=== PATIENT | female | born 1975 | race Two or more races ===

== ENCOUNTER 2018-12-06 16:26 | Inpatient (IN) | payer SELFPAY ==
[~2018-12-06] VITALS: Ht 167.6 cm; Wt 86.8 kg
[2018-12-06] MEDS ORDERED: SODIUM CHLORIDE 0.9% 1,000 ML IV ONE (16:56)
[2018-12-06] MEDS ORDERED: hydrALAZINE HCL 20 MG/ML VL IV ONE ×2 (17:30→21:00)
[2018-12-06 17:31] LABS: Basophils # (auto) 0 uL; Basophils % (auto) 0.4 % (0.0-2.0); Eosinophils # (auto) 0 uL; Eosinophils % (auto) 0.2 % (0.0-7.0); Hematocrit 33.9 % (36.0-46.0); Hemoglobin 11.4 g/dL (12.2-16.2); Lymphocytes # (auto) 0.4 uL; Lymphocytes % (auto) 13.3 % (10.0-50.0); Mean Corpuscular Hemoglobin 31.4 pg (28.0-32.0); Mean Corpuscular Hgb Conc. 33.6 g/dL (32.0-36.0); Mean Corpuscular Volume 93.5 fL (80.0-100.0); Monocytes # (auto) 0.5 uL; Monocytes % (auto) 14.2 % (0.0-12.0); Neutrophils # (auto) 2.3 uL; Neutrophils % (auto) 71.9 % (37.0-80.0); Nucleated Red Blood Cells % 0.2 %; Platelet Count (auto) 129 10^3/uL (140-450); Red Blood Cells 3.62 10^6/uL (4.0-5.20); Red Cell Distribution Width 14.9 % (11.8-14.3); White Blood Cell 3.2 10^3/uL (4.4-10.8)
[2018-12-06 17:48] LABS: Albumin 3.1 g/dL (3.4-5.0); Calcium 6.8 mg/dL (8.5-10.1); Magnesium 2.3 mg/dL (1.6-2.6); Potassium 4.3 mmol/L (3.5-5.1)
[2018-12-06 17:49] LABS: Amphetamine Screen, Urine NEGATIVE (NEGATIVE); BUN/Creatinine Ratio 5.7; Barbiturate Scree,Urine NEGATIVE (NEGATIVE); Benzodiazephine Screen, Urine NEGATIVE (NEGATIVE); Cannabinoid Screen, Urine NEGATIVE (NEGATIVE); Cocaine Screen, Urine NEGATIVE (NEGATIVE); Opiate Scree,Urine NEGATIVE (NEGATIVE); Phencyclidine Screen, Urine NEGATIVE (NEGATIVE)
[2018-12-06 17:52] LABS: INR 1.03 (0.9-1.15); Partial Thromboplastin Time 43.3 sec (23.64-32.05)
[2018-12-06 17:55] LABS: Bilirubin, Total 0.5 mg/dL (0.2-1.0); Total Protein 7.6 g/dL (6.4-8.2)
[2018-12-06 18:31] LABS: Urine Specific Gravity 1.005 (1.001-1.035)
[2018-12-06 18:34] LABS: Urine Blood 250 /uL (Negative)
[2018-12-06 18:44] LABS: Urine WBC TNTC /hpf (0 - 5); Urine WBC Clumps PRESENT /hpf (None Seen)
[2018-12-06 18:45] LABS: Urine Bacteria 4+ /hpf (None Seen)
[2018-12-06] MEDS ORDERED: DEXTROSE (50%) 50ML SYRG IV PRN (21:30)
[2018-12-06] MEDS ORDERED: NITROGLYCERIN 0.4 MG SL TAB SL PRN (21:30)
[2018-12-06] MEDS ORDERED: MORPHINE SULF INJ 2 MG/ML SYRINGE 1ML IV PRN (21:30)
[2018-12-06] MEDS ORDERED: TEMAZEPAM 15 MG CAP PO PRN (21:30)
[2018-12-06] MEDS ORDERED: ONDANSETRON HCL 4 MG/2 ML VIAL IV PRN (21:30)
[2018-12-06] MEDS: CLINDAMYCIN 600MG IV 50 ML IV SCH (22:23)
[2018-12-06 22:58] LABS: Hemoglobin 12.5 g/dL (12.2-16.2)
[2018-12-06] MEDS ORDERED: cefTRIAXone 1GM/50ML D5W 50 ML IV ONE (23:30)
--- NOTE | 2018-12-07 00:40 | NUR ---
Telemetry admit from ER Patient admitted to Telemetry unit and oriented to primary RN, unit, room, bed, and unit policies regarding patient care and visiting hours. Patient now on continuous telemetry monitoring, tele box # 2 and telemetry reading on arrival to unit is sinus tachycardia at rate of 102. Patient weighed by bedscale and encouraged to call if they need something. All questions and concerns addressed, patient verbalized understanding.
[2018-12-07] MEDS: cefTRIAXone 1GM/50ML D5W 50 ML IV SCH ×2 (00:42→23:59)
[2018-12-07] MEDS: ACCU-CHEK COMFORT CURVE STRIP VI SCH ×5 (00:53→23:59)
[2018-12-07] MEDS: InsuLIN REG 1unit/0.01ml Soln (100units/ml) SC SCH ×5 (00:53→23:59)
[2018-12-07 01:00] VITALS: BP 158/76
[2018-12-07] MEDS: ACETAMINOPHEN 325 MG TAB PO PRN ×3 (01:51→16:01)
[2018-12-07] MEDS ORDERED: LOSA-39 (02:05)
[2018-12-07] MEDS ORDERED: TRAM50TA2 (02:05)
[2018-12-07] MEDS ORDERED: FURO40TA4 (02:05)
[2018-12-07] MEDS ORDERED: ALPR-140 (02:05)
[2018-12-07] MEDS ORDERED: ESCI10TA53 (02:05)
[2018-12-07] MEDS ORDERED: B-CO-5 (02:05)
--- NOTE | 2018-12-07 02:07 | NUR ---
Patient unable to recall medications she takes at home. Active medications she has from [facility] have been added to medication reconciliation but patient cannot currently confirm these medications. Family will bring list of medications in AM, per patient.
[2018-12-07 05:45] VITALS: BP 130/70
--- NOTE | 2018-12-07 06:12 | NUR ---
No urine output noted from Prescott catheter. Bladder distended on assessment. 650 mls of urine noted in bladder upon ultrasound assessment.
[2018-12-07] MEDS: CLINDAMYCIN 600MG IV 50 ML IV SCH ×3 (06:15→21:35)
--- NOTE | 2018-12-07 06:48 | NUR ---
Attempted to flush Prescott with normal saline with no successful flow of urine. Large amounts of purulent, foul smelling drainage noted below vagina. Reattempted to flush with 40 mls of NS and was successful this time. 400 mls of cloudy, straw yellow urine drained out of Prescott. Urine sample taken for culture. Prescott is still draining at this time. Will notify hospitalist of development.
--- NOTE | 2018-12-07 07:07 | NUR ---
Paged hospitalist to notify of purulent, foul smelling urine. Will endorse to day shift RN.
--- NOTE | 2018-12-07 07:34 | NUR ---
Opening Shift Note Assumed care of patient, awake and alert. cnc machinist 2nd shift RN showed consistencies of pt urine thick puss filled, urine culture sent to lab No S/S of distress/SOB or pain. Instructed on POC and to call for assist PRN, will continue to monitor for changes Q1hr and PRN.
[2018-12-07 08:44] VITALS: BP 137/78
[2018-12-07] MEDS: PANTOPRAZOLE 40 MG TAB PO SCH (08:48)
[2018-12-07] MEDS: ASPirin 81 mg TAB PO SCH (08:48)
[2018-12-07 09:26] LABS: Hematocrit 33.5 % (36.0-46.0); Mean Corpuscular Hemoglobin 30.7 pg (28.0-32.0); Mean Corpuscular Hgb Conc. 32.8 g/dL (32.0-36.0); Mean Corpuscular Volume 93.5 fL (80.0-100.0); Platelet Count (auto) 144 10^3/uL (140-450); Red Blood Cells 3.58 10^6/uL (4.0-5.20); Red Cell Distribution Width 14.9 % (11.8-14.3)
[2018-12-07 09:46] LABS: BUN/Creatinine Ratio 5.8; Calcium 6.5 mg/dL (8.5-10.1); Potassium 5.1 mmol/L (3.5-5.1)
[2018-12-07 09:52] LABS: Basophils % (manual) 0 (0.0-2.0); Blast Cells 0; Eosinophils % (manual) 0 (0-7); Metamyelocytes % 0; Myelocytes % 0; Promyelocytes % 0; Reactive Lymphocytes 0
[2018-12-07 11:08] LABS: Band Neutrophils % (manual) 2; Lymphocytes % (manual) 19 (10.0-50.0)
[2018-12-07 11:10] LABS: Monocytes % (manual) 17 (0-12)
--- NOTE | 2018-12-07 11:11 | NUR ---
[facility] dialysis called informed me pt will be getting dialysis today around 1200
[2018-12-07] MEDS ORDERED: LABETALOL HCL 200 MG TAB PO ONE (11:15)
--- NOTE | 2018-12-07 11:32 | NUR ---
WOUND CARE NOTE: Wound care in to see patient per wound care request regarding Rt BKA stump wound and R 3rd finger wound that are noted present on admission. Bedside nurse took photograph of patient's wounds upon admission for reference. Patient is 43 y/o female with admitting diagnosis Metabolic Encephalopathy. Patient with history of DM and ESRD. Patient is resting in bed in Rm. 233A. Patient is awake, alert and oriented. Patient denies any pain at this time. Patient is self turn and reposition. Her Tom score is 17. Patient states that she moves around at home using wheelchair and walker. Noted patient's hands has multiple dry blisters and dry scabbed wound to her Rt 3rd finger. Patient states that dry blisters to her hands and scabbed wound to her Rt 3rd finger is from contact burn "from cooking". Patient reported that it just hard to bend the R 3rd finger due to dry hard scab. Advised patient to apply hydrogel to scab wound on Rt 3rd finger to help moistened scab and come off by itself. Patient's R BKA stump has 2x4x0.7cm open wound. Wound is red with bright red sukhjinder wound, minimal seropurulent drainage noted, no odor noted. Patient reported that R BKA done in [place] "july". Cleanse R BKA stump wound with wound cleanser, pat dry with gauze, applied Thera honey gel to open wound bed area and covered with Opti foam gentle dressing. Patient also has history of L foot transmetatarsal amputation which she reported done "last year at [place]". L forefoot has well healed stump. No other wound noted, no pressure injury noted. Patient tolerated well. RECOMMENDATION: Daily/PRN dressing change to R BKA stump wound, BID/PRN cleaning and application of Hydrogel to R 3rd finger wound per MD order, dietary consult , podiatry/surgical consult, redistribute pressure points with pillows, continue monitoring by wound care while patient is hospitalized. Addendum: 12/07/18 at 1517 by Tonie Kong RN Amended: Links added.
[2018-12-07 13:00] VITALS: BP 142/79
--- NOTE | 2018-12-07 13:45 | NUR ---
HD started on pt [facility]
[2018-12-07] MEDS ORDERED: SODIUM CHL 0.9% 1000 ML BAG XX ONE (14:00)
[2018-12-07 16:00] VITALS: BP 172/91
[2018-12-07] MEDS: cloNIDine HCL 0.1 MG TAB PO PRN (16:01)
--- NOTE | 2018-12-07 16:08 | NUR ---
prn clonidine given for high blood pressure tylenol given for headache and zofran given for nausea, HD nurse came to station informed of x1 emesis right now
--- NOTE | 2018-12-07 17:05 | NUR ---
construction secretary hospitalist paged in regards to getting one time dose for high blood pressure and headache due to pt throwing it up immediately after administration awaiting call back
--- NOTE | 2018-12-07 17:08 | NUR ---
HD completed 3 liters taken out BP 186/95
[2018-12-07] MEDS ORDERED: LABETALOL HCL 5 MG/ML ML 20ML VIAL IV ONE (17:15)
[2018-12-07] MEDS ORDERED: KETOROLAC TROMETH 30 MG/ML 1ML VIAL IV ONE (17:15)
--- NOTE | 2018-12-07 17:38 | NUR ---
md kendrick called back new orders noted and carried out, meds given
--- NOTE | 2018-12-07 17:45 | NUR ---
transport to [facility] pt for mri of the knee, pt x2 episodes of emesis doesn't feel good will have mri tomorrow
--- NOTE | 2018-12-07 19:00 | NUR ---
Opening Shift Note Assumed care of patient, awake and alert. No S/S of distress/SOB or pain. Instructed on POC and to call for assist PRN, will continue to monitor for changes Q1hr and PRN.
[2018-12-07] MEDS ORDERED: EPOETIN ALFA 10,000 UNIT/1 ML VIAL SC ONE (21:00)
[2018-12-07] MEDS: LABETALOL HCL 200 MG TAB PO SCH (21:35)
[2018-12-07 22:00] VITALS: BP 173/75
[2018-12-07] MEDS ORDERED: HYDROcodone-ACET 7.5/325MG TAB PO ONE (22:00)
--- NOTE | 2018-12-07 22:00 | NUR ---
Hospitalist paged: Hospitalist paged d/t patient complaining of pain and stating Tylenol was not sufficient enough to manage her pain. Hospitalist returned page immediately and new orders were received.
--- NOTE | 2018-12-08 | NUR ---
Hospitalist paged: Hospitalist paged d/t patient complaining of breakthrough pain after taking the Harrison 7.5mg/325mg at 2216.
--- NOTE | 2018-12-08 00:45 | NUR ---
Hospitalist returned paged with new orders for pain medication. Order read back and verified.
[2018-12-08] MEDS ORDERED: NALBUPHINE HCL 10 MG/1ml INJECTION IV ONE (01:00)
[2018-12-08 05:00] VITALS: BP 154/83
[2018-12-08] MEDS: CLINDAMYCIN 600MG IV 50 ML IV SCH (05:33)
[2018-12-08] MEDS: ACCU-CHEK COMFORT CURVE STRIP VI SCH ×3 (05:34→18:23)
[2018-12-08] MEDS: InsuLIN REG 1unit/0.01ml Soln (100units/ml) SC SCH ×3 (05:34→18:00)
[2018-12-08 08:00] VITALS: BP 141/83
[2018-12-08 08:56] VITALS: BP 141/83
[2018-12-08] MEDS: PANTOPRAZOLE 40 MG TAB PO SCH (10:22)
[2018-12-08] MEDS: ASPirin 81 mg TAB PO SCH (10:22)
[2018-12-08] MEDS: ACETAMINOPHEN 325 MG TAB PO PRN (10:22)
[2018-12-08] MEDS: LABETALOL HCL 200 MG TAB PO SCH (10:23)
[2018-12-08] MEDS: cloNIDine HCL 0.1 MG TAB PO PRN ×2 (11:34)
[2018-12-08] MEDS ORDERED: CLO01T GT (11:50)
[2018-12-08] MEDS ORDERED: AML5T PO (11:51)
--- NOTE | 2018-12-08 12:00 | NUR ---
Dr. Jimenez at bedside.
--- NOTE | 2018-12-08 12:25 | NUR ---
Prescott catheter discontinued Order to discontinue Prescott catheter. Prescott dc'd with clean technique following deflation of balloon. Patient tolerated well with no complaints of pain. Continue care.
[2018-12-08 12:56] VITALS: BP 173/88
--- NOTE | 2018-12-08 14:30 | NUR ---
PATIENTS BLOOD PRESSURE IS 169/92, PATIENT IS C/O OF HEADACHE AND RIGHT KNEE PAIN. PAGED FOR DR. CLEMENS. AWAITING CALL BACK. Addendum: 12/08/18 at 1510 by Desiree Rick RN SECOND PAGE FOR DR. CLEMENS. Addendum: 12/08/18 at 1539 by Desiree Rick RN Orders received for Norvasc 100mg po once, losartan 10mg po once. Orders read back and verified.
[2018-12-08] MEDS ORDERED: LOSARTAN POTASSIUM 50 MG TAB PO ONE ×2 (15:15→15:45)
[2018-12-08] MEDS ORDERED: amLODIPine BESYLATE 5 MG TAB PO ONE ×2 (15:15→15:45)
[2018-12-08] MEDS ORDERED: IBUPROFEN 400 MG TAB PO PRN (15:30)
--- NOTE | 2018-12-08 16:00 | NUR ---
WOUND CARE DRESSING CHANGE PROVIDED PER MD'S ORDERS. PATIENT TOLERATED WELL.
--- NOTE | 2018-12-08 16:22 | NUR ---
assessment re-ss consult Patient is a 43 year old female who is alert and oriented. Patients cognitive abilities are intact. Prior to admission patient lived home with family and functioned independently. Patient informed me she is able to care for her own ADLs. Per patient she will return home to her prior living arrangements post discharge. Patient informed me she has a fww and a cane for home use. Patient informed me she is on service with [facility] at at 230pm. Patient informed me she will have transportation once her m-jay is re-instated. I have provided patient with the [employer] bus resource. Patient will be assigned PCP once m-jay is re-instated. I informed patient she has a right to speak to a social insurance administrator regarding all care. I informed patient she has a right to participate in any and all discharge planning. Patient is aware of visiting hours on the hospital floor. I informed patient she has a right to privacy. Patient does not have a POA and advanced directive. I have offered patient information on POA and advanced directives. I informed the patient the advantages and benefits of having an Advanced Directive. Patient verbalized understanding and agreed to discharge plan. Addendum: 12/08/18 at 1643 by Ronna HAYS Amended: Links added.
--- NOTE | 2018-12-08 17:10 | NUR ---
DR. GRAFF AT BEDSIDE . RE-ASSESSED PATIENT'S BP 185/80. NO S/S OF DISTRESS/SOB. MD PINA
[2018-12-08 17:14] VITALS: BP 181/96
[2018-12-08] MEDS ORDERED: NIFEdipine ER 30 MG TAB PO ONE (17:45)
[2018-12-08] MEDS ORDERED: traMADol HCL 50 MG TAB PO ONE (17:45)
[2018-12-08 18:42] VITALS: BP 175/92
--- NOTE | 2018-12-08 19:55 | NUR ---
Patient discharged and off unit. Patient was transported out of facility on wheelchair with family at patient side. Patient in no discomfort or distress.
[2018-12-08] MEDS ORDERED: cloNIDine HCL 0.1 MG TAB PO SCH (22:00)
[2018-12-09] MEDS ORDERED: amLODIPine BESYLATE 5 MG TAB PO SCH (10:00)
[2018-12-09] MEDS ORDERED: LOSARTAN POTASSIUM 50 MG TAB PO SCH (10:00)
== END 2018-12-08 19:55 | disposition home or self-care (01) | DRG 280 ==
LOC: EDBD 16:26 → ER 16:37 → TELE 16:38 → TELE-EAST 23:23
PROVIDERS: ADMIT Nurse Practitioner; ATTEND Internal Medicine Nephrology
PROC: 5A1D70Z Performance of Urinary Filtration, Intermittent, Less than 6 Hours Per Day (ICD-10-PCS; principal; 2018-12-07)
DX: I21.A1 Myocardial infarction type 2 (principal); N18.6 End stage renal disease; G93.41 Metabolic encephalopathy; I12.0 Hypertensive chronic kidney disease with stage 5 chronic kidney disease or end stage renal disease; N39.0 Urinary tract infection, site not specified; M86.671 Other chronic osteomyelitis, right ankle and foot; E11.22 Type 2 diabetes mellitus with diabetic chronic kidney disease; Z80.3 Family history of malignant neoplasm of breast; Z82.49 Family history of ischemic heart disease and other diseases of the circulatory system; Z83.3 Family history of diabetes mellitus; Z89.512 Acquired absence of left leg below knee; Z99.2 Dependence on renal dialysis; Z89.511 Acquired absence of right leg below knee
CPT/HCPCS: 36415; 70450; 71045; 73700; 73721; 80048; 80053; 80307; 81001; 81025; 82962; 83605; 83735; 83880; 84443; 84484; 85007; 85014; 85018; 85025; 85027; 85610; 85730; 87040; 87081; 87086; 87088; 87186; 90935; 96361; 96374; 96375; G0378; J0696; J0885; J1815; J1885; J2405; J3490

== ENCOUNTER 2019-11-09 13:38 | Inpatient (IN) | payer OTHER ==
[~2019-11-09] VITALS: Ht 167.6 cm; Wt 90.5 kg
[~2019-11-09 13:38] MED LIST: ALPR0.5T8; AML5T PO; B-CO-5; CLO01T GT; ESCI10TA53; FURO40TA4; LOSA-39
[2019-11-09 14:11] LABS: Hematocrit 25.4 % (36.0-46.0); Hemoglobin 8.6 g/dL (12.2-16.2); Mean Corpuscular Hemoglobin 31.7 pg (28.0-32.0); Mean Corpuscular Volume 93.4 fL (80.0-100.0); Platelet Count (auto) 216 10^3/uL (140-450); Red Blood Cells 2.72 10^6/uL (4.0-5.20); Red Cell Distribution Width 16.5 % (11.8-14.3); White Blood Cell 5.3 10^3/uL (4.4-10.8)
[2019-11-09 14:26] LABS: Carbon Dioxide 24 mmol/L (21-32); Chloride 91 mmol/L (98-107); Potassium 3.2 mmol/L (3.5-5.1); Sodium 131 mmol/L (136-145)
[2019-11-09 14:27] LABS: Albumin 3.6 g/dL (3.4-5.0); Anion Gap 16 (5-15); Blood Urea Nitrogen 39 mg/dL (7-18); Glucose 161 mg/dL (74-106); Magnesium 2.5 mg/dL (1.6-2.6)
[2019-11-09 14:34] LABS: Alanine Aminotransferase 19 U/L (13-56); Alkaline Phosphatase 235 U/L (45-117); Aspartate Aminotransferase 19 U/L (15-37); BUN/Creatinine Ratio 5.3; Bilirubin, Total 0.6 mg/dL (0.2-1.0); GFR African American 8 mL/min; GFR Non-African American 6 mL/min; Total Protein 9.2 g/dL (6.4-8.2)
[2019-11-09 14:41] LABS: Basophils % (manual) 0 (0.0-2.0); Blast Cells 0; Eosinophils % (manual) 0 (0-7); Myelocytes % 0; Promyelocytes % 0; Reactive Lymphocytes 0
[2019-11-09] MEDS ORDERED: hydrALAZINE HCL 20 MG/ML VL IV ONE (15:00)
[2019-11-09 15:02] LABS: Alcohol, Urine < 3.0 mg/dL (0-10); Amphetamine Screen, Urine NEGATIVE (NEGATIVE); Barbiturate Scree,Urine NEGATIVE (NEGATIVE); Benzodiazephine Screen, Urine NEGATIVE (NEGATIVE); Cannabinoid Screen, Urine NEGATIVE (NEGATIVE); Cocaine Screen, Urine NEGATIVE (NEGATIVE); Opiate Scree,Urine NEGATIVE (NEGATIVE); Phencyclidine Screen, Urine NEGATIVE (NEGATIVE)
[2019-11-09] MEDS ORDERED: NITROGLYCERIN 0.4 MG SL TAB SL PRN (15:30)
[2019-11-09] MEDS ORDERED: FAMOTIDINE (10MG/ML) 2ML VL IV SCH (15:30)
[2019-11-09] MEDS ORDERED: DEXTROSE (50%) 50ML SYRG IV PRN (15:30)
[2019-11-09] MEDS ORDERED: MORPHINE SULF INJ 2 MG/ML SYRINGE 1ML IV PRN (15:30)
[2019-11-09] MEDS ORDERED: ACETAMINOPHEN 500 MG TAB PO PRN (15:30)
[2019-11-09] MEDS ORDERED: ONDANSETRON HCL 4 MG/2 ML VIAL IV PRN (15:30)
[2019-11-09] MEDS ORDERED: LACTULOSE 20Gm/30ML SOLN PO PRN (15:30)
[2019-11-09] MEDS ORDERED: LABETALOL HCL 5 MG/ML 4ML SYRINGE IV ONE (15:45)
[2019-11-09 15:59] LABS: Band Neutrophils % (manual) 2; Lymphocytes % (manual) 13 (10.0-50.0); Metamyelocytes % 1; Monocytes % (manual) 2 (0-12)
[2019-11-09 16:09] LABS: Alcohol, Urine < 3.0 mg/dL (0-10); Amphetamine Screen, Urine NEGATIVE (NEGATIVE); Barbiturate Scree,Urine NEGATIVE (NEGATIVE); Benzodiazephine Screen, Urine NEGATIVE (NEGATIVE); Cannabinoid Screen, Urine NEGATIVE (NEGATIVE); Cocaine Screen, Urine NEGATIVE (NEGATIVE); Opiate Scree,Urine NEGATIVE (NEGATIVE); Phencyclidine Screen, Urine NEGATIVE (NEGATIVE)
[2019-11-09] MEDS: FAMOTIDINE (10MG/ML) 2ML VL IV SCH (16:15)
[2019-11-09] MEDS: InsuLIN REG 1unit/0.01ml Soln (100units/ml) SC SCH ×2 (16:22→21:49)
[2019-11-09] MEDS: ACCU-CHEK COMFORT CURVE STRIP VI SCH ×2 (16:23→21:54)
[2019-11-09 16:28] LABS: Urine Bacteria NONE SEEN /hpf (None Seen); Urine Blood Negative /uL (Negative); Urine Specific Gravity 1.013 (1.001-1.035); Urine WBC 5 /hpf (0 - 5)
[2019-11-09] MEDS ORDERED: B-CO-5 PO (16:43)
[2019-11-09] MEDS ORDERED: ESCI10TA53 PO (16:43)
[2019-11-09] MEDS ORDERED: MET50T PO (16:43)
[2019-11-09] MEDS ORDERED: FURO40TA4 PO (16:43)
[2019-11-09] MEDS ORDERED: CALC667C5 PO (16:43)
[2019-11-09] MEDS ORDERED: LOSA-39 PO (16:43)
[2019-11-09] MEDS: FUROSEMIDE 40 MG/4 ML VIAL IV SCH (18:07)
[2019-11-09] MEDS: CARVEDILOL 3.125 MG TAB PO SCH (21:44)
[2019-11-09] MEDS: cloNIDine HCL 0.1 MG TAB GT SCH (21:44)
[2019-11-10] MEDS: LABETALOL HCL 5 MG/ML ML 20ML VIAL IV PRN ×2 (00:03→04:19)
[2019-11-10] MEDS: FUROSEMIDE 40 MG/4 ML VIAL IV SCH ×2 (06:14→18:20)
[2019-11-10] MEDS: ACCU-CHEK COMFORT CURVE STRIP VI SCH ×4 (07:08→21:38)
[2019-11-10] MEDS: InsuLIN REG 1unit/0.01ml Soln (100units/ml) SC SCH ×4 (07:09→21:39)
[2019-11-10] MEDS: FAMOTIDINE (10MG/ML) 2ML VL IV SCH (10:00)
[2019-11-10] MEDS: CARVEDILOL 3.125 MG TAB PO SCH ×2 (10:00→21:43)
[2019-11-10] MEDS: amLODIPine BESYLATE 5 MG TAB PO SCH (10:00)
[2019-11-10] MEDS: ENOXAPARIN SOD 30 MG/0.3 ML SYRINGE SC SCH (10:00)
[2019-11-10] MEDS: cloNIDine HCL 0.1 MG TAB GT SCH ×2 (10:30→21:43)
[2019-11-10 11:03] LABS: Albumin 2.9 g/dL (3.4-5.0); Calcium 6.4 mg/dL (8.5-10.1); Potassium 4.3 mmol/L (3.5-5.1)
[2019-11-10 11:06] LABS: BUN/Creatinine Ratio 5.3; Bilirubin, Total 0.4 mg/dL (0.2-1.0)
[2019-11-10] MEDS ORDERED: cefTRIAXone 1GM/50ML D5W 50 ML IV ONE (12:00)
[2019-11-11] MEDS: FUROSEMIDE 40 MG/4 ML VIAL IV SCH ×2 (06:12→17:35)
[2019-11-11] MEDS: ACCU-CHEK COMFORT CURVE STRIP VI SCH ×4 (06:19→22:44)
[2019-11-11] MEDS: InsuLIN REG 1unit/0.01ml Soln (100units/ml) SC SCH ×4 (07:00→22:44)
[2019-11-11] MEDS: cefTRIAXone 1GM/50ML D5W 50 ML IV SCH (09:12)
[2019-11-11] MEDS: traMADol HCL 50 MG TAB PO PRN ×3 (09:16→22:44)
[2019-11-11] MEDS: amLODIPine BESYLATE 5 MG TAB PO SCH (10:00)
[2019-11-11] MEDS: ENOXAPARIN SOD 30 MG/0.3 ML SYRINGE SC SCH (10:00)
[2019-11-11] MEDS: CARVEDILOL 3.125 MG TAB PO SCH ×2 (10:00→22:45)
[2019-11-11] MEDS: FAMOTIDINE (10MG/ML) 2ML VL IV SCH (10:00)
[2019-11-11] MEDS: cloNIDine HCL 0.1 MG TAB GT SCH ×2 (10:00→22:45)
[2019-11-11] MEDS ORDERED: AZITHROMYCIN 500MG/ 250ML 250 ML IV ONE (10:45)
--- NOTE | 2019-11-11 10:57 | NUR ---
EEG- ELECTROENCEPHALOGRAM COMPLETED ON 11/11/2019 @ 09:55.
[2019-11-11] MEDS ORDERED: BACITRACIN INJ 50000 UNIT VIAL TOP ONE (14:15)
[2019-11-11] MEDS ORDERED: BACITRACIN TOP OINT 1 UD PKG TOP ONE (15:15)
[2019-11-11] MEDS: GABAPENTIN 300 MG CAP PO SCH (22:44)
[2019-11-12] VITALS (7 sets, daily range): BP systolic 109–143; BP diastolic 72–84
[2019-11-12] MEDS: LORazepam 0.5 MG TAB PO PRN ×2 (00:40→11:38)
--- NOTE | 2019-11-12 01:40 | NUR ---
Telemetry admit from ER SIRI ALVAREZ admitted to Telemetry unit after SBAR received. Patient oriented to KASSANDRA CORNELL RN primary RN, unit, room, bed, and unit policies regarding patient care and visiting hours. Patient now on continuous telemetry monitoring, tele box #27 and telemetry reading on arrival to unit is NSR. Patient is on room air, weighed by bedscale and encouraged to call if they need something. All questions and concerns addressed, patient verbalized understanding. Note:
--- NOTE | 2019-11-12 03:27 | NUR ---
MRSA SWAB AND URINE SPECIMEN SENT TO LAB.
[2019-11-12] MEDS: FUROSEMIDE 40 MG/4 ML VIAL IV SCH ×2 (06:16→18:25)
[2019-11-12] MEDS: GABAPENTIN 300 MG CAP PO SCH ×2 (06:17→14:21)
[2019-11-12] MEDS: ACCU-CHEK COMFORT CURVE STRIP VI SCH ×3 (06:22→17:35)
[2019-11-12] MEDS: InsuLIN REG 1unit/0.01ml Soln (100units/ml) SC SCH ×3 (06:24→18:30)
[2019-11-12] MEDS: cefTRIAXone 1GM/50ML D5W 50 ML IV SCH (08:14)
--- NOTE | 2019-11-12 08:15 | NUR ---
Scheduled IV abx given per order. Patient resting comfortably in bed with no distress noted. Patient stable.
[2019-11-12] MEDS: cloNIDine HCL 0.1 MG TAB GT SCH (09:02)
[2019-11-12] MEDS: CARVEDILOL 3.125 MG TAB PO SCH (09:03)
[2019-11-12] MEDS: FAMOTIDINE (10MG/ML) 2ML VL IV SCH (09:03)
[2019-11-12] MEDS: amLODIPine BESYLATE 5 MG TAB PO SCH (09:04)
[2019-11-12] MEDS: ENOXAPARIN SOD 30 MG/0.3 ML SYRINGE SC SCH (09:05)
--- NOTE | 2019-11-12 09:05 | NUR ---
Patient resting quietly in bed with no distress noted. Scheduled medications given per order. Patient stable at this time.
--- NOTE | 2019-11-12 09:40 | NUR ---
Patient stable with Dr. Padron at bedside.
[2019-11-12] MEDS ORDERED: AZITHROMYCIN 500MG/ 250ML 250 ML IV SCH (10:00)
--- NOTE | 2019-11-12 10:08 | NUR ---
Patient medicated for 11/02 pain in right lower extremity and headache. Scheduled IV abx given as well. Patient stable at this time. Addendum: 11/12/19 at 1048 by CHRISTO LOTT RN RN Correction: 11/11 pain
--- NOTE | 2019-11-12 11:40 | NUR ---
Patient sitting in bed with no complaint of pain. Checked blood sugar: 284 mg/dl - will cover per sliding scale. Patient requested med for anxiety. Due med given per order. Patient stable. Addendum: 11/12/19 at 1146 by CHRISTO LOTT RN RN Covered per sliding scale.
--- NOTE | 2019-11-12 11:50 | NUR ---
Patient taken via wheelchair to have MRI.
--- NOTE | 2019-11-12 12:10 | NUR ---
Patient returned to unit in stable condition. MRI not done; patient refused.
--- NOTE | 2019-11-12 14:20 | NUR ---
Scheduled medication given per order. Patient eating lunch at this time. Stable.
--- NOTE | 2019-11-12 14:48 | NUR ---
Second page to Dr. Gautam regarding dialysis; whether to be done in hospital or at dialysis center. Awaiting call back.
--- NOTE | 2019-11-12 16:27 | NUR ---
Third page to Dr. Gautam. Awaiting call back.
--- NOTE | 2019-11-12 16:46 | NUR ---
Dr. Gautam at nurses' station. Per doctor, ok to d/c patient. Patient to f/u for dialysis tomorrow; already has a chair at HD facility.
[2019-11-12] MEDS: traMADol HCL 50 MG TAB PO PRN (17:36)
--- NOTE | 2019-11-12 17:37 | NUR ---
Checked blood sugar: 294 mg/dl - will cover per sliding scale. Patient also medicated for 6/10 headache and pain in right lower extremity. Patient stable.
--- NOTE | 2019-11-12 17:49 | NUR ---
Discharge instructions Both written and verbal discharge instructions given to patient. Prescription given as well. Patient verbalized understanding on instructions. All belongings with patient. Patient stable.
--- NOTE | 2019-11-12 19:05 | NUR ---
Discharge Peripheral IV removed intact with no active bleeding. Patient tolerated well. Prescott cath removed as well. Patient discharged to home in stable condition.
== END 2019-11-12 18:55 | disposition home or self-care (01) | DRG 52 ==
LOC: EDBD 13:38 → ER 13:38 → TELE 13:39 → TELE-CENTR 11-11 23:38
PROVIDERS: ATTEND Internal Medicine
DX: G92 Toxic encephalopathy (principal); J18.9 Pneumonia, unspecified organism; N39.0 Urinary tract infection, site not specified; I13.2 Hypertensive heart and chronic kidney disease with heart failure and with stage 5 chronic kidney disease, or end stage renal disease; N18.6 End stage renal disease; I50.9 Heart failure, unspecified; I16.1 Hypertensive emergency; E11.42 Type 2 diabetes mellitus with diabetic polyneuropathy; E11.22 Type 2 diabetes mellitus with diabetic chronic kidney disease; E44.0 Moderate protein-calorie malnutrition; I67.83 Posterior reversible encephalopathy syndrome; F32.9 Major depressive disorder, single episode, unspecified; E11.65 Type 2 diabetes mellitus with hyperglycemia; E78.5 Hyperlipidemia, unspecified; E87.0 Hyperosmolality and hypernatremia; F41.9 Anxiety disorder, unspecified; D64.9 Anemia, unspecified; Z79.82 Long term (current) use of aspirin; Z79.899 Other long term (current) drug therapy; Z89.432 Acquired absence of left foot; Z80.3 Family history of malignant neoplasm of breast; Z82.49 Family history of ischemic heart disease and other diseases of the circulatory system; Z89.511 Acquired absence of right leg below knee; Z89.512 Acquired absence of left leg below knee; Z99.2 Dependence on renal dialysis; Z83.3 Family history of diabetes mellitus; Z68.32 Body mass index [BMI] 32.0-32.9, adult
CPT/HCPCS: 36415; 36600; 70450; 71045; 80053; 80307; 80320; 81001; 81025; 82805; 82962; 83036; 83605; 83735; 83880; 84443; 84484; 85007; 85027; 87040; 87081; 87086; 93005; 95819; G0378; J0696; J1815; J3490